=== PATIENT | male | born 1990 | race Caucasian/White ===

== ENCOUNTER 2018-03-27 21:17 | Emergency (ER) | payer SELFPAY ==
[~2018-03-27] VITALS: Ht 182.9 cm; Wt 159.1 kg
[2018-03-27 21:22] VITALS: TEMP 97.9
[2018-03-27 21:40] LABS: BASO # 0.1 (0.0-0.2); BASO % 0.5 % (0.0-2.0); EOS # 0.6 (0.0-0.7); EOS % 5.7 % (0-4.0); GRAN # 5.6 (1.4-6.5); HEMATOCRIT 45.2 % (42.0-52.0); HEMOGLOBIN 15.4 g/dl (13.5-18.0); LYMPH # 3.1 (1.2-3.4); LYMPH % 31.5 % (20.0-51.0); MEAN CELL VOLUME 89 fl (80.0-100.0); MEAN CORPUSCULAR HEMOGLOBIN 30 pg (27.0-31.0); MEAN CORPUSCULAR HGB CONC 34 g/dl (33.0-37.0); MEAN PLATELET VOLUME 9.6 fl (7.4-10.4); MONO # 0.5 (0.1-0.6); PLATELET COUNT 304 K/mm3 (130-400); RED BLOOD COUNT 5.08 M/mm3 (4.20-5.60); REDCELL DISTRIBUTION WIDTH-CV 13.3 % (11.5-14.5)
[2018-03-27 21:50] LABS: ALANINE AMINOTRANSFERASE 39 U/L (21-72); ALKALINE PHOSPHATASE 81 U/L (50-136); ANION GAP 12 mmol/L (7-16); AST,SGOT 30 U/L (15-37); BILIRUBIN,TOTAL 1.1 mg/dL (0.0-1.0); BLOOD UREA NITROGEN 12 mg/dL (9-20); CARBON DIOXIDE 25 mmol/L (22-30); CHLORIDE 102 mmol/L (98-107); CREATININE, serum 0.87 mg/dL (0.66-1.25); GLUCOSE 162 mg/dL (74-106); POTASSIUM 3.7 mmol/L (3.4-5.0); SODIUM 139 mmol/L (137-145); TOTAL PROTEIN 7.1 gm/dL (6.4-8.2)
[2018-03-27 22:03] LABS: TROPONIN-I < 0.012 ng/mL (0.000-0.034)
[2018-03-27] MEDS ORDERED: PREDNISONE20 MG PO (22:20)
[2018-03-27] MEDS ORDERED: RT ADVAIR 228 DISKUS IH (22:20)
[2018-03-28 00:12] VITALS: BP 127/74; PULSE 118
== END 2018-03-28 00:15 | disposition home or self-care (01) ==
LOC: COL.ER 21:17
PROVIDERS: Emergency Medicine
DX: J45.901 Unspecified asthma with (acute) exacerbation (principal)
CPT/HCPCS: J2930; J7030; J7512